=== PATIENT | female | born 1945 | race Caucasian/White ===

== ENCOUNTER 2016-11-12 10:07 | Emergency (ER) | payer MEDICARE ==
[2016-11-12 10:35] VITALS: BP 157/74
--- NOTE | 2016-11-12 11:14 | Emergency Department Report ---
HPI - General Chief Complaint: Upper Respiratory Infection Time Seen by Provider: 11/12/16 11:05 - HPI HPI: Patient here reports that she has cough and sore throat for over 5 months. She says she saw her doctor is Dr. Daugherty 1 month ago and was put on cough medicine but it's not helping. Patient has a history of diabetes and high blood pressure. She denies any chest pain or shortness of breath. Denies any nausea or vomiting. Denies any fever or chills. Patient says she had chest x-ray one month ago and her doctor told her that it was normal. She says she is having nasal congestion and worsening cough at night. Reports sore throat is 5 out of 10 and feels achy with coughing. Patient also on lisinopril which she says she started about 5 months ago. ED Past Medical Hx - Past Medical History Previous Medical History?: Yes Hx Hypertension: Yes Hx Diabetes: Yes - Surgical History Past Surgical History?: No - Family History Family history: hypertension - Social History Smoking Status: Never Smoker Substance Use Type: Prescribed - Medications Home Medications: Home Medications Medication Instructions Recorded Confirmed Last Taken Type Azithromycin [Zithromax Z-MARLEEN] 250 mg PO DAILY #6 tab 11/12/16 Unknown Rx Cetirizine HCl [ZyrTEC] 10 mg PO QDAY #10 capsule 11/12/16 Unknown Rx Esomeprazole Magnesium [NexIUM] 1 tab PO DAILY 11/12/16 11/12/16 11/12/16 History Fluticasone [Flonase] 1 spray NS QDAY #1 bottle 11/12/16 Unknown Rx Hydrochlorothiazide [HCTZ] 25 mg PO QDAY #30 tablet 11/12/16 Unknown Rx Promethazine /Codeine 11/12/16 11/12/16 11/04/16 History [Phenergan/Codeine 6.25-10 mg/5 ml] Sitagliptin Phosphate [Januvia] 100 mg PO DAILY 11/12/16 11/12/16 11/12/16 History guaiFENesin/CODEINE [Robitussin AC] 5 ml PO QHS PRN #70 udc 11/12/16 Unknown Rx metFORMIN [Glucophage] 500 mg PO BID 11/12/16 11/12/16 11/11/16 History ED Review of Systems ROS: Stated complaint: COUGH/ SORE THROAT Other details as noted in HPI Comment: All other systems reviewed and negative Constitutional: denies: chills, fever Eyes: denies: eye pain ENT: throat pain, congestion. denies: ear pain Respiratory: cough. denies: shortness of breath, SOB with exertion, SOB at rest , stridor, wheezing Cardiovascular: denies: chest pain, palpitations, dyspnea on exertion, edema, syncope Gastrointestinal: denies: abdominal pain, nausea, vomiting, diarrhea, constipation Musculoskeletal: denies: back pain, arthralgia Skin: denies: rash Neurological: denies: headache, weakness, numbness, paresthesias, confusion, abnormal gait, vertigo Physical Exam - Physical Exam Vital Signs: Vital Signs 11/12/16 10:31 Temperature 98.6 F Pulse Rate 65 Respiratory 18 Rate Blood Pressure 157/74 O2 Sat by Pulse 96 Oximetry General: This is a 71-year-old female well-nourished well-developed in no acute distress. Physical Exam: Head: Normocephalic atraumatic Mouth: Moist, no pharyngeal exudate or erythema. Uvula is midline and oral airway is patent. No facial swelling. No peritonsillar abscesses. Nose: Congested with erythema to mucosa. Clear Drainage. Maxillary and frontal sinuses nontender to palpate Neck: Supple, no C-spine tenderness, no tracheal deviation. Nontender to palpate. no adenopathy Ears: Bilateral TMs congested without erythema. Bilateral EAC without any redness swelling or drainage. Abdomen: Soft, nontender to palpate in all quadrants, normal bowel sounds in all quadrant and negative CVA tenderness bilaterally. Eyes: Bilateral pupils equal and reactive to light, bilateral EOM intact. Bilateral sclera and conjunctiva without injection. Normal accommodation. Lungs: Clear to auscultate bilaterally no rhonchi wheezes or rales. Normal work of breathing . Dry cough extremity; No CCE. +2 pulses. No neurovascular compromise Cardiovascular: S1-S2, regular rate rhythm. No murmurs. Skin: clean Dry and intact no rash no lesions Psych: Normal mood and behavior ED Course Vital Signs 11/12/16 10:31 Temperature 98.6 F Pulse Rate 65 Respiratory 18 Rate Blood Pressure 157/74 O2 Sat by Pulse 96 Oximetry - Reevaluation(s) Reevaluation #1: 11/12/16 13:06 Patient stable throughout ED stay. ED Medical Decision Making - Radiology Data Radiology results: report reviewed CT scan of the chest reveals no acute cardiopulmonary findings. - Medical Decision Making ED course: Seen here with cough that she says she has for 5 months and has a primary care doctor that she said that x-ray about a month ago and did not find anything abnormal in her chest. CT scan of the chest reveals no acute cardiopulmonary findings. I discussed with patient and family that her cough is more than likely from lisinopril because it started around the time she started taking lisinopril. She is on lisinopril and HCTZ so I discussed with family that patient should stop lisinopril and I'll prescribe HCTZ because it is a combination at that she's taken and to call her primary care office on Monday to let them know that she was seen in the emergency room and her lisinopril was stopped. Patient and family reported that her blood pressure has been stable without the medication. Certainly that he'll be able to get in to see her primary care on Monday. Patient with upper respiratory infection and will be treated with medication for congestion. He is identified that she has diabetes and other chronic medical problems I will put her on antibiotic. Patient given prescription for Zithromax, Flonase, HCTZ, Reina and guaifenesin with codeine. Patient discharged home with family in voice understanding of discharge instruction and need to follow-up with primary care and pulmonary doctor if she has continued coughing. Critical care attestation.: If time is entered above; I have spent that time in minutes in the direct care of this critically ill patient, excluding procedure time. ED Disposition Clinical Impression: Cough, persistent Upper respiratory tract infection Qualifiers: URI type: unspecified URI Qualified Code(s): J06.9 - Acute upper respiratory infection, unspecified Disposition: DISCHARGED TO HOME OR SELFCARE Is pt being admited?: No Does the pt Need Aspirin: No Condition: Stable Instructions: Upper Respiratory Infection (ED), Chronic Cough (ED) Additional Instructions: Follow up with her primary care physician in 2-3 days Cough is now resolved, he will need to follow-up with pulmonary doctor Take cough medicine as prescribed. Take antibiotic as prescribed Please stop taking lisinopril with HCTZ and start taking HCTZ. Prescriptions: guaiFENesin/CODEINE [Robitussin AC] 5 ml PO QHS PRN #70 udc PRN Reason: Cough Azithromycin [Zithromax Z-MARLEEN] 250 mg PO DAILY #6 tab Cetirizine HCl [ZyrTEC] 10 mg PO QDAY #10 capsule Fluticasone [Flonase] 1 spray NS QDAY #1 bottle Hydrochlorothiazide [HCTZ] 25 mg PO QDAY #30 tablet Referrals: PRIMARY CARE, [Primary Care Provider] - 2-3 Days Forms: Accompanied Note
--- NOTE | 2016-11-12 11:57 | Cat Scan Report ---
CT CHEST WITHOUT CONTRAST: HISTORY: Cough. TECHNIQUE: Helical CT with sagittal and coronal reformatted images. FINDINGS: Heart size is normal. There is no evidence of adenopathy within the mediastinum. Pulmonary araceli are free of any mass and the lungs are clear of infiltrates. The pleura is unremarkable. No masses involve the chest wall. No abnormalities are noted within the upper abdomen. The adrenal glands are normal. IMPRESSION: Unremarkable noncontrast CT chest.
== END 2016-11-12 13:25 | disposition home or self-care (01) ==
LOC: ED 10:07
DX: J06.9 Acute upper respiratory infection, unspecified (principal); I10 Essential (primary) hypertension; E11.9 Type 2 diabetes mellitus without complications
CPT/HCPCS: 71250

== ENCOUNTER 2017-01-05 00:58 | Emergency (ER) | payer MEDICARE ==
[2017-01-05] MEDS ORDERED: NACL 0.9% 1000 ML 1,000 ML IV ONE (01:16)
[2017-01-05 02:09] LABS: Basophils % (Auto) 0.4 % (0.0-1.8); Eosinophils % (Auto) 0.2 % (0.0-4.3); Hematocrit 36.7 % (30.3-42.9); Hemoglobin 12.2 gm/dl (10.1-14.3); Mean Corpuscular HGB Conc 33 % (30-34); Mean Corpuscular Hemoglobin 32 pg (28-32); Mean Corpuscular Volume 95 fl (79-97); Platelet Count 209 K/mm3 (140-440); Red Blood Count 3.86 M/mm3 (3.65-5.03); Red Cell Distribution Width 14.3 % (13.2-15.2); White Blood Count 6.7 K/mm3 (4.5-11.0)
[2017-01-05 02:16] LABS: INR 1.02 (0.87-1.13)
[2017-01-05 02:17] LABS: Partial Thromboplastin Time 28.9 Sec. (24.2-36.6)
[2017-01-05 02:19] LABS: Alanine Aminotransferase 37 units/L (7-56); Albumin 3.9 g/dL (3.9-5); Albumin/Globulin Ratio 1.1 %; Alkaline Phosphatase 88 units/L (35-129); Anion Gap 19 mmol/L; Blood Urea Nitrogen 28 mg/dL (7-17); Calcium 8.7 mg/dL (8.4-10.2); Carbon Dioxide 20 mmol/L (22-30); Chloride 103.2 mmol/L (98-107); Glucose 222 mg/dL (65-100); Lipase 38 units/L (13-60); Potassium 4.3 mmol/L (3.6-5.0); Sodium 138 mmol/L (137-145); Total Protein 7.4 g/dL (6.3-8.2)
[2017-01-05 04:06] LABS: Bilirubin,Urine NEG (Negative); Blood,Urine NEG (Negative); Ketones,Urine NEG (Negative); Leukocyte Esterase,Urine NEG (Negative); Mucus,Urine FEW /HPF; Nitrite,Urine NEG (Negative); Protein,Urine <15 mg/dL mg/dL (Negative); RBC,Urine < 1.0 /HPF (0.0-6.0); Urobilinogen,Urine < 2.0 mg/dL (<2.0)
--- NOTE | 2017-01-05 08:19 | Cat Scan Report ---
CT OF THE ABDOMEN AND PELVIS WITHOUT CONTRAST HISTORY: Abdominal pain, GI bleeding. TECHNIQUE: Helical CT without contrast. Sagittal and coronal reformatted images. FINDINGS: Within the limits of a noncontrast exam, the abdominal and pelvic viscera are within normal limits. The liver, biliary system, pancreas, spleen, kidneys, adrenal glands and bladder are unremarkable. The bowel loops are normal caliber and wall thickness given no oral contrast was administered. There is no obvious active GI bleeding on this limited exam. Normal appendix. The aorta is normal caliber. No ascites, bulky adenopathy or inflammatory changes. The uterus and adnexa are unremarkable. The lung bases are clear. Normal heart size. No suspicious bony lesion. IMPRESSION: Unremarkable noncontrast CT of the abdomen and pelvis.
--- NOTE | 2017-01-05 12:21 | Emergency Department Report ---
ED GI Bleed HPI - General Chief complaint: GI Bleed Stated complaint: BLOOD IN STOOL Time Seen by Provider: 01/05/17 11:28 Source: patient Mode of arrival: Ambulatory Limitations: Language Barrier - History of Present Illness Initial comments: Denies history of taking anticoagulation prescription PAtient's son available during the discussion MD complaint: blood streaked stool -: Gradual, hour(s) Radiation: none Severity scale (0 -10): 0 Consistency: intermittent Improves with: none Worsens with: bowel movement Associated Symptoms: denies: abdominal pain, nausea, vomiting, epistaxis, fever/ chills, headaches, loss of appetite, malaise, easy bruising, rash, other bleeding, shortness of breath, syncope, weakness - Related Data Home Medications Medication Instructions Recorded Confirmed Last Taken Esomeprazole Magnesium [NexIUM] 1 tab PO DAILY 11/12/16 11/12/16 11/12/16 Promethazine /Codeine 11/12/16 11/12/16 11/04/16 [Phenergan/Codeine 6.25-10 mg/5 ml] Sitagliptin Phosphate [Januvia] 100 mg PO DAILY 11/12/16 11/12/16 11/12/16 metFORMIN [Glucophage] 500 mg PO BID 11/12/16 11/12/16 11/11/16 Previous Rx's Medication Instructions Recorded Last Taken Type Azithromycin [Zithromax Z-MARLEEN] 250 mg PO DAILY #6 tab 11/12/16 Unknown Rx Cetirizine HCl [ZyrTEC] 10 mg PO QDAY #10 capsule 11/12/16 Unknown Rx Fluticasone [Flonase] 1 spray NS QDAY #1 bottle 11/12/16 Unknown Rx Hydrochlorothiazide [HCTZ] 25 mg PO QDAY #30 tablet 11/12/16 Unknown Rx guaiFENesin/CODEINE [Robitussin AC] 5 ml PO QHS PRN #70 udc 11/12/16 Unknown Rx Allergies Allergy/AdvReac Type Severity Reaction Status Date / Time Penicillins Allergy Unknown Verified 11/12/16 10:35 ED Review of Systems ROS: Stated complaint: BLOOD IN STOOL Other details as noted in HPI Other: GENERAL: No weight change, fatigue, weakness, fever, chills, or night sweats SKIN: No changes in skin or hair, no itching, no rashes, no jaundice HEAD: No trauma, headache, or visual changes EYES: No blurriness, tearing, itching, acute visual loss, conjunctival discoloration, or scleral icterus EARS: No hearing loss, tinnitus, vertigo, or earache NOSE: No rhinorrhea, stuffiness, sneezing, itching, or epistaxis MOUTH: No bleeding gums, hoarseness, sore throat, or swelling CARDIAC: No new murmur, chest pain, palpitations, dyspnea on exertion, orthopnea , PND, or edema RESPIRATORY: No shortness of breath, wheeze, cough, sputum production, hemoptysis, pneumonia, asthma, bronchitis, or emphysema GI: hematochezia URINARY: No frequency, urgency, polyuria, dysuria, hematuria, or incontinence MUSCULOSKELETAL: No muscle weakness, joint stiffness, decrease in range of motion, redness, swelling, tenderness NEUROLOGIC: No loss of sensation, numbness, tingling, tremors, weakness, paralysis, seizures HEMATOLOGIC: No anemia, easy bruising, bleeding, petechiae, or purpura ENDOCRINE: No hot or cold intolerance, sweating, polyuria, polydipsia or, polyphagia no thyroid problems PSYCHIATRIC: No change in mood, no anxiety, no depression ED Past Medical Hx - Past Medical History Previous Medical History?: Yes Hx Hypertension: Yes Hx Diabetes: Yes - Social History Smoking Status: Never Smoker Substance Use Type: None - Medications Home Medications: Home Medications Medication Instructions Recorded Confirmed Last Taken Type Azithromycin [Zithromax Z-MARLEEN] 250 mg PO DAILY #6 tab 11/12/16 Unknown Rx Cetirizine HCl [ZyrTEC] 10 mg PO QDAY #10 capsule 11/12/16 Unknown Rx Esomeprazole Magnesium [NexIUM] 1 tab PO DAILY 11/12/16 11/12/16 11/12/16 History Fluticasone [Flonase] 1 spray NS QDAY #1 bottle 11/12/16 Unknown Rx Hydrochlorothiazide [HCTZ] 25 mg PO QDAY #30 tablet 11/12/16 Unknown Rx Promethazine /Codeine 11/12/16 11/12/16 11/04/16 History [Phenergan/Codeine 6.25-10 mg/5 ml] Sitagliptin Phosphate [Januvia] 100 mg PO DAILY 11/12/16 11/12/16 11/12/16 History guaiFENesin/CODEINE [Robitussin AC] 5 ml PO QHS PRN #70 udc 11/12/16 Unknown Rx metFORMIN [Glucophage] 500 mg PO BID 11/12/16 11/12/16 11/11/16 History ED Physical Exam - General Limitations: Language Barrier - Other Other exam information: GENERAL: Patient in no acute distress HEAD: Normocephalic, atraumatic EYES: PERRLA, EOM intact, no scleral icterus, no conjunctival hemorrhage, visual farnsworth and acuity wnl, NOSE: No tenderness, discharge, sinus tenderness MOUTH: No erythema, bleeding, exudate HEART: Regular rate and rhythm, no murmur, S1-S2 are auscultated, pulses are symmetric LUNGS: No wheezing, rales, rhonchi, bilateral breath sounds ABDOMEN: Normal bowel sounds, no tenderness, no rebound, no guarding, no masses , no CVA tenderness MUSCULOSKELETAL: Normal joint range of motion, no redness, no swelling, no tenderness NEUROLOGIC: Alert, Cranial nerves intact, normal sensation, normal strength, no cerebellar deficit PSYCHIATRIC: No homicidal or suicidal ideation, no anxiety, no depression, no hallucinations SKIN: Skin is warm and dry, no wounds, no rashes ED Course Vital Signs 01/05/17 01/05/17 01/05/17 01:03 01:09 03:55 Temperature 97.5 F L 97.6 F 98.7 F Pulse Rate 84 84 88 Respiratory 18 18 18 Rate Blood Pressure 173/81 138/88 Blood Pressure 173/81 [Right] O2 Sat by Pulse 98 97 97 Oximetry 01/05/17 01/05/17 01/05/17 06:09 06:11 06:21 Temperature 98.3 F Pulse Rate 60 64 Respiratory 19 24 Rate Blood Pressure 144/73 140/73 Blood Pressure 144/73 [Right] O2 Sat by Pulse 97 98 95 Oximetry 01/05/17 01/05/17 01/05/17 06:30 06:41 07:25 Temperature Pulse Rate 66 70 79 Respiratory 21 15 13 Rate Blood Pressure 133/71 133/71 138/71 Blood Pressure [Right] O2 Sat by Pulse 95 98 97 Oximetry 01/05/17 01/05/17 01/05/17 07:30 07:40 09:02 Temperature 98 F Pulse Rate 61 72 Respiratory 23 16 Rate Blood Pressure 137/66 138/71 Blood Pressure 138/71 [Right] O2 Sat by Pulse 97 96 98 Oximetry 01/05/17 01/05/17 01/05/17 09:11 09:21 09:30 Temperature Pulse Rate Respiratory Rate Blood Pressure 137/72 135/72 138/67 Blood Pressure [Right] O2 Sat by Pulse 97 99 98 Oximetry 01/05/17 01/05/17 01/05/17 09:41 09:51 10:01 Temperature Pulse Rate Respiratory Rate Blood Pressure 137/66 143/75 143/75 Blood Pressure [Right] O2 Sat by Pulse 95 95 86 Oximetry 01/05/17 01/05/17 01/05/17 10:11 10:21 10:30 Temperature Pulse Rate 94 H 59 L Respiratory 22 21 Rate Blood Pressure 143/75 151/69 133/62 Blood Pressure [Right] O2 Sat by Pulse 97 97 97 Oximetry 01/05/17 01/05/17 01/05/17 10:41 10:51 11:00 Temperature Pulse Rate 63 57 L 81 Respiratory 16 17 25 H Rate Blood Pressure 133/62 129/68 136/71 Blood Pressure [Right] O2 Sat by Pulse 96 96 96 Oximetry 01/05/17 01/05/17 01/05/17 11:11 11:21 11:30 Temperature Pulse Rate 61 62 66 Respiratory 20 21 21 Rate Blood Pressure 136/71 132/68 138/66 Blood Pressure [Right] O2 Sat by Pulse 97 96 97 Oximetry 01/05/17 01/05/17 12:27 12:48 Temperature Pulse Rate 60 Respiratory 18 Rate Blood Pressure 125/69 Blood Pressure 125/69 [Right] O2 Sat by Pulse 91 98 Oximetry ED Medical Decision Making - Lab Data Result diagrams: 01/05/17 01:26 01/05/17 01:26 - Radiology Data Radiology results: report reviewed - Medical Decision Making Patient comfortable. Updated with results. Plan discharge with outpatient follow-up. Patient agrees with plan and will return if symptoms worsen. Critical care attestation.: If time is entered above; I have spent that time in minutes in the direct care of this critically ill patient, excluding procedure time. ED Disposition Clinical Impression: Rectal bleeding Disposition: DC-01 TO HOME OR SELFCARE Is pt being admited?: No Condition: Stable Instructions: Rectal Bleeding (ED) Referrals: LUKE NASH PA [Primary Care Provider] - 2-3 Days [facility] [Provider Group] - 2-3 Days Forms: Accompanied Note Time of Disposition: 12:21
[2017-01-05 12:49] VITALS: BP 125/69
== END 2017-01-05 12:48 | disposition home or self-care (01) ==
LOC: ED 00:58
DX: K62.5 Hemorrhage of anus and rectum (principal); I10 Essential (primary) hypertension; E11.9 Type 2 diabetes mellitus without complications; Z88.0 Allergy status to penicillin
CPT/HCPCS: 36415; 74176; 80053; 81001; 83690; 85025; 85610; 85730; 86850; 86900; 86901; 93005; 93010

== ENCOUNTER 2021-08-06 23:59 | Emergency (ER) | payer MEDICARE ==
[2021-08-07] MEDS ORDERED: SODIUM CHLORIDE 0.9% 1000 ML IV SOLN IV ONE (01:16)
--- NOTE | 2021-08-07 01:30 | Emergency Department Report ---
HPI - General Chief Complaint: Weakness Time Seen by Provider: 08/07/21 01:09 - HPI HPI: 76-year-old female presents to the emergency department via EMS from home after she became very weak and it appeared like she was going to pass out. This was witnessed by her son, who called EMS. She has 2 sons, both named Johnson. The son that lives in [place] is the one that knows her medical history and his phone number is [phone]. This patient has a history of stage IV liver cancer with lung metastasis. All of her care is through [facility]. The patient recently had an issue with obstructive jaundice towards the end of 2020. Her son says that the patient had a biliary stent taken out on Monday, 2 days ago. The patient was due for chemotherapy treatment today but did not go secondary to her feeling ill. The son said that she appeared pale, shaky, and she was complaining of chills. She presents with a fever of 103 F, tachycardia, and some borderline hypotension and a code sepsis was initiated. ED Past Medical Hx - Past Medical History Hx Hypertension: Yes Hx Diabetes: Yes Additional medical history: CANCER, CHEMO, - Surgical History Past Surgical History?: Yes - Social History Smoking Status: Never Smoker Substance Use Type: None - Medications Home Medications: Home Medications Medication Instructions Recorded Confirmed Last Taken Type Azithromycin [Zithromax Z-MARLEEN] 250 mg PO DAILY #6 tab 11/12/16 Unknown Rx Cetirizine HCl [ZyrTEC] 10 mg PO QDAY #10 capsule 11/12/16 Unknown Rx Esomeprazole Magnesium [NexIUM] 1 tab PO DAILY 11/12/16 11/12/16 11/12/16 H istory Fluticasone [Flonase] 1 spray NS QDAY #1 bottle 11/12/16 Unknown Rx Promethazine /Codeine 11/12/16 11/12/16 11/04/16 History [Phenergan/Codeine 6.25-10 mg/5 ml] Sitagliptin Phosphate [Januvia] 100 mg PO DAILY 11/12/16 11/12/16 11/12/16 History guaiFENesin/CODEINE [Robitussin AC] 5 ml PO QHS PRN #70 udc 11/12/16 Unknown Rx hydroCHLOROthiazide [HCTZ] 25 mg PO QDAY #30 tablet 11/12/16 Unknown Rx metFORMIN [Glucophage] 500 mg PO BID 11/12/16 11/12/16 11/11/16 History ED Review of Systems ROS: Stated complaint: WEAKNESS/FALL Other details as noted in HPI Comment: All other systems reviewed and negative Constitutional: chills, fever, weakness Eyes: denies: eye pain, vision change ENT: denies: ear pain, throat pain Respiratory: denies: cough, shortness of breath Cardiovascular: denies: chest pain, palpitations Gastrointestinal: denies: vomiting, diarrhea Musculoskeletal: back pain, myalgia Skin: denies: rash, lesions Neurological: denies: numbness, paresthesias Physical Exam - Physical Exam Vital Signs: Vital Signs 08/07/21 01:04 Temperature 103.4 F H Pulse Rate 132 H Respiratory 20 Rate Blood Pressure 90/56 [Left] O2 Sat by Pulse 92 Oximetry Physical Exam: GENERAL: The patient is ill-appearing. HENT: Normocephalic. Atraumatic. Patient has moist mucous membranes. EYES: Extraocular motions are intact. Pupils equal reactive to light bilat erally. NECK: Supple. Trachea is midline. CHEST/LUNGS: Clear to auscultation. Mild tachypnea. HEART/CARDIOVASCULAR: Regular. There is moderate no tachycardia. There is no murmur. ABDOMEN: Abdomen is soft, nontender. Patient has normal bowel sounds. There is no abdominal distention. SKIN: Skin is warm and dry. Patient is jaundiced. NEURO: The patient is awake and cooperative. Normal speech. MUSCULOSKELETAL: There is no tenderness or deformity. ED Course Vital Signs 08/07/21 01:04 Temperature 103.4 F H Pulse Rate 132 H Respiratory 20 Rate Blood Pressure 90/56 [Left] O2 Sat by Pulse 92 Oximetry - Consultations Consultation #1: 08/07/21 07:07 I spoke to the superintendent electric power on-call, Dr. Salazar, and she will consult on the patient. I spoke to the environmental communications specialist on-call, Dr. Magdaleno. She agrees with the plan for resuscitation and broad-spectrum antibiotics. Otherwise no new orders and GI will consult on the patient. - Central Line Placement Right Femoral Consent Obtained: verbal consent (From son Johnson), emergent situation Time Out Performed: Yes Patient Placed on Monitor/Pulse Ox: Yes MD Prep: mask, gown, gloves Central Line Prep: Chlorhexidine scrub Local Anesthesia Used: Lidocaine 1% Amount of Anesthesia Used (mls): 3 Ultrasound Used for Placement: Yes Central Line Lumen Inserted: triple Reason for Insertion: Volume Resuscitation Bloods Obtained for Lab: No Central Line Position: good blood return, all ports aspirated, flus, sutured in place with nyl Dressing Applied: Tegaderm Post Procedure X-Ray: tip of catheter in good p Patient Tolerated Procedure: well Complications: none ED Medical Decision Making - Lab Data Result diagrams: 08/07/21 01:08/07/21:33 Lab Results 08/07/21 08/07/21 08/07/21 Range/Units : 01:33 01:33 WBC 16.0 H (4.5-11.0) K/mm3 RBC 3.30 L (3.65-5.03) M/mm3 Hgb 10.9 (10.1-14.3) gm/dl Hct 33.5 (30.3-42.9) % MCV 102 H (79-97) fl MCH 33 H (28-32) pg MCHC 32 (30-34) % RDW 14.5 (13.2-15.2) % Plt Count 183 (140-440) K/mm3 Add Manual Diff Complete Total Counted 100 Seg Neutrophils % [employer] Seg Neuts % (Manual) 74.0 H (40.0-70.0) % Band Neutrophils % 17.0 % Lymphocytes % (Manual) 5.0 L (13.4-35.0) % Reactive Lymphs % (Man) 0 % Monocytes % (Manual) 2.0 (0.0-7.3) % Eosinophils % (Manual) 0 (0.0-4.3) % Basophils % (Manual) 0 (0.0-1.8) % Metamyelocytes % 2.0 % Myelocytes % 0 % Promyelocytes % 0 % Blast Cells % 0 % Nucleated RBC % Not Reportable Seg Neutrophils # Man 11.8 H (1.8-7.7) K/mm3 Band Neutrophils # 2.7 K/mm3 Lymphocytes # (Manual) 0.8 L (1.2-5.4) K/mm3 Abs React Lymphs (Man) 0.0 K/mm3 Monocytes # (Manual) 0.3 (0.0-0.8) K/mm3 Eosinophils # (Manual) 0.0 (0.0-0.4) K/mm3 Basophils # (Manual) 0.0 (0.0-0.1) K/mm3 Metamyelocytes # 0.3 K/mm3 Myelocytes # 0.0 K/mm3 Promyelocytes # 0.0 K/mm3 Blast Cells # 0.0 K/mm3 WBC Morphology Not Reportable Hypersegmented Neuts Not Reportable Hyposegmented Neuts Not Reportable Hypogranular Neuts Not Reportable Smudge Cells Not Reportable Toxic Granulation Not Reportable Toxic Vacuolation Not Reportable Dohle Bodies Not Reportable Pelger-Huet Anomaly Not Reportable Yogi Rods Not Reportable Platelet Estimate Consistent w auto Clumped Platelets Not Reportable Plt Clumps, EDTA Not Reportable Large Platelets Not Reportable Giant Platelets Not Reportable Platelet Satelliting Not Reportable Plt Morphology Comment Not Reportable RBC Morphology Not Reportable Dimorphic RBCs Not Reportable Polychromasia Not Reportable Hypochromasia 1+ Poikilocytosis 1+ Anisocytosis 1+ Microcytosis Not Reportable Macrocytosis 1+ Spherocytes Rare Pappenheimer Bodies Not Reportable Sickle Cells Not Reportable Target Cells Not Reportable Tear Drop Cells Not Reportable Ovalocytes Few Stomatocytes Few Helmet Cells Not Reportable Franks-Lonoke Bodies Not Reportable Stafford Rings Not Reportable Luz Cells Not Reportable Bite Cells Not Reportable Crenated Cell Not Reportable Elliptocytes Not Reportable Acanthocytes (Spur) Not Reportable Rouleaux Not Reportable Hemoglobin C Crystals Not Reportable Schistocytes Not Reportable Malaria parasites Not Reportable Navid Bodies Not Reportable Hem Pathologist Commnt No D-Dimer (0-234) ng/mlDDU Sodium 133 L (137-145) mmol/L Potassium 4.0 (3.6-5.0) mmol/L Chloride 98.6 (98-107) mmol/L Carbon Dioxide 18 L (22-30) mmol/L Anion Gap 20 mmol/L BUN 27 H (7-17) mg/dL Creatinine 0.9 (0.6-1.2) mg/dL Estimated GFR > 60 ml/min BUN/Creatinine Ratio 30 % Glucose 163 H (65-100) mg/dL Lactic Acid 5.70 H* (0.7-2.0) mmol/L Calcium 7.9 L (8.4-10.2) mg/dL Ferritin (10.0-200.0) ng/mL Total Bilirubin 6.80 H (0.1-1.2) mg/dL AST 174 H (5-40) units/L ALT 89 H (7-56) units/L Alkaline Phosphatase 349 H (35-129) units/L Ammonia (25-60) umol/L Lactate Dehydrogenase (91-180) units/L Troponin T < 0.010 (0.00-0.029) ng/mL C-Reactive Protein (0.00-1.30) mg/dL Total Protein 6.0 L (6.3-8.2) g/dL Albumin 2.6 L (3.9-5) g/dL Albumin/Globulin Ratio 0.8 % TSH (0.270-4.200) mlU/mL 08/07/21 08/07/21 08/07/21 Range/Units 01:33 01:33 01:53 WBC (4.5-11.0) K/mm3 RBC (3.65-5.03) M/mm3 Hgb (10.1-14.3) gm/dl Hct (30.3-42.9) % MCV (79-97) fl MCH (28-32) pg MCHC (30-34) % RDW (13.2-15.2) % Plt Count (140-440) K/mm3 Add Manual Diff Total Counted Seg Neutrophils % Seg Neuts % (Manual) (40.0-70.0) % Band Neutrophils % % Lymphocytes % (Manual) (13.4-35.0) % Reactive Lymphs % (Man) % Monocytes % (Manual) (0.0-7.3) % Eosinophils % (Manual) (0.0-4.3) % Basophils % (Manual) (0.0-1.8) % Metamyelocytes % % Myelocytes % % Promyelocytes % % Blast Cells % % Nucleated RBC % Seg Neutrophils # Man (1.8-7.7) K/mm3 Band Neutrophils # K/mm3 Lymphocytes # (Manual) (1.2-5.4) K/mm3 Abs React Lymphs (Man) K/mm3 Monocytes # (Manual) (0.0-0.8) K/mm3 Eosinophils # (Manual) (0.0-0.4) K/mm3 Basophils # (Manual) (0.0-0.1) K/mm3 Metamyelocytes # K/mm3 Myelocytes # K/mm3 Promyelocytes # K/mm3 Blast Cells # K/mm3 WBC Morphology Hypersegmented Neuts Hyposegmented Neuts Hypogranular Neuts Smudge Cells Toxic Granulation Toxic Vacuolation Dohle Bodies Pelger-Huet Anomaly Yogi Rods Platelet Estimate Clumped Platelets Plt Clumps, EDTA Large Platelets Giant Platelets Platelet Satelliting Plt Morphology Comment RBC Morphology Dimorphic RBCs Polychromasia Hypochromasia Poikilocytosis Anisocytosis Microcytosis Macrocytosis Spherocytes Pappenheimer Bodies Sickle Cells Target Cells Tear Drop Cells Ovalocytes Stomatocytes Helmet Cells Franks-Lonoke Bodies Stafford Rings Luz Cells Bite Cells Crenated Cell Elliptocytes Acanthocytes (Spur) Rouleaux Hemoglobin C Crystals Schistocytes Malaria parasites Navid Bodies Hem Pathologist Commnt D-Dimer 4285.00 H (0-234) ng/mlDDU Sodium (137-145) mmol/L Potassium (3.6-5.0) mmol/L Chloride (98-107) mmol/L Carbon Dioxide (22-30) mmol/L Anion Gap mmol/L BUN (7-17) mg/dL Creatinine (0.6-1.2) mg/dL Estimated GFR ml/min BUN/Creatinine Ratio % Glucose (65-100) mg/dL Lactic Acid (0.7-2.0) mmol/L Calcium (8.4-10.2) mg/dL Ferritin (10.0-200.0) ng/mL Total Bilirubin (0.1-1.2) mg/dL AST (5-40) units/L ALT (7-56) units/L Alkaline Phosphatase (35-129) units/L Ammonia 19.0 L (25-60) umol/L Lactate Dehydrogenase (91-180) units/L Troponin T (0.00-0.029) ng/mL C-Reactive Protein (0.00-1.30) mg/dL Total Protein (6.3-8.2) g/dL Albumin (3.9-5) g/dL Albumin/Globulin Ratio % TSH 1.150 (0.270-4.200) mlU/mL 08/07/21 08/07/21 08/07/21 Range/Units 01:53 01:53 05:44 WBC (4.5-11.0) K/mm3 RBC (3.65-5.03) M/mm3 Hgb (10.1-14.3) gm/dl Hct (30.3-42.9) % MCV (79-97) fl MCH (28-32) pg MCHC (30-34) % RDW (13.2-15.2) % Plt Count (140-440) K/mm3 Add Manual Diff Total Counted Seg Neutrophils % Seg Neuts % (Manual) (40.0-70.0) % Band Neutrophils % % Lymphocytes % (Manual) (13.4-35.0) % Reactive Lymphs % (Man) % Monocytes % (Manual) (0.0-7.3) % Eosinophils % (Manual) (0.0-4.3) % Basophils % (Manual) (0.0-1.8) % Metamyelocytes % % Myelocytes % % Promyelocytes % % Blast Cells % % Nucleated RBC % Seg Neutrophils # Man (1.8-7.7) K/mm3 Band Neutrophils # K/mm3 Lymphocytes # (Manual) (1.2-5.4) K/mm3 Abs React Lymphs (Man) K/mm3 Monocytes # (Manual) (0.0-0.8) K/mm3 Eosinophils # (Manual) (0.0-0.4) K/mm3 Basophils # (Manual) (0.0-0.1) K/mm3 Metamyelocytes # K/mm3 Myelocytes # K/mm3 Promyelocytes # K/mm3 Blast Cells # K/mm3 WBC Morphology Hypersegmented Neuts Hyposegmented Neuts Hypogranular Neuts Smudge Cells Toxic Granulation Toxic Vacuolation Dohle Bodies Pelger-Huet Anomaly Yogi Rods Platelet Estimate Clumped Platelets Plt Clumps, EDTA Large Platelets Giant Platelets Platelet Satelliting Plt Morphology Comment RBC Morphology Dimorphic RBCs Polychromasia Hypochromasia Poikilocytosis Anisocytosis Microcytosis Macrocytosis Spherocytes Pappenheimer Bodies Sickle Cells Target Cells Tear Drop Cells Ovalocytes Stomatocytes Helmet Cells Franks-Lonoke Bodies Stafford Rings Luz Cells Bite Cells Crenated Cell Elliptocytes Acanthocytes (Spur) Rouleaux Hemoglobin C Crystals Schistocytes Malaria parasites Navid Bodies Hem Pathologist Commnt D-Dimer (0-234) ng/mlDDU Sodium (137-145) mmol/L Potassium (3.6-5.0) mmol/L Chloride (98-107) mmol/L Carbon Dioxide (22-30) mmol/L Anion Gap mmol/L BUN (7-17) mg/dL Creatinine (0.6-1.2) mg/dL Estimated GFR ml/min BUN/Creatinine Ratio % Glucose (65-100) mg/dL Lactic Acid 4.70 H* (0.7-2.0) mmol/L Calcium (8.4-10.2) mg/dL Ferritin 1231.0 H (10.0-200.0) ng/mL Total Bilirubin (0.1-1.2) mg/dL AST (5-40) units/L ALT (7-56) units/L Alkaline Phosphatase (35-129) units/L Ammonia (25-60) umol/L Lactate Dehydrogenase 477 H (91-180) units/L Troponin T (0.00-0.029) ng/mL C-Reactive Protein 31.30 H (0.00-1.30) mg/dL Total Protein (6.3-8.2) g/dL Albumin (3.9-5) g/dL Albumin/Globulin Ratio % TSH (0.270-4.200) mlU/mL 08/07/21 Range/Units Unknown WBC (4.5-11.0) K/mm3 RBC (3.65-5.03) M/mm3 Hgb (10.1-14.3) gm/dl Hct (30.3-42.9) % MCV (79-97) fl MCH (28-32) pg MCHC (30-34) % RDW (13.2-15.2) % Plt Count (140-440) K/mm3 Add Manual Diff Total Counted Seg Neutrophils % Seg Neuts % (Manual) (40.0-70.0) % Band Neutrophils % % Lymphocytes % (Manual) (13.4-35.0) % Reactive Lymphs % (Man) % Monocytes % (Manual) (0.0-7.3) % Eosinophils % (Manual) (0.0-4.3) % Basophils % (Manual) (0.0-1.8) % Metamyelocytes % % Myelocytes % % Promyelocytes % % Blast Cells % % Nucleated RBC % Seg Neutrophils # Man (1.8-7.7) K/mm3 Band Neutrophils # K/mm3 Lymphocytes # (Manual) (1.2-5.4) K/mm3 Abs React Lymphs (Man) K/mm3 Monocytes # (Manual) (0.0-0.8) K/mm3 Eosinophils # (Manual) (0.0-0.4) K/mm3 Basophils # (Manual) (0.0-0.1) K/mm3 Metamyelocytes # K/mm3 Myelocytes # K/mm3 Promyelocytes # K/mm3 Blast Cells # K/mm3 WBC Morphology Hypersegmented Neuts Hyposegmented Neuts Hypogranular Neuts Smudge Cells Toxic Granulation Toxic Vacuolation Dohle Bodies Pelger-Huet Anomaly Yogi Rods Platelet Estimate Clumped Platelets Plt Clumps, EDTA Large Platelets Giant Platelets Platelet Satelliting Plt Morphology Comment RBC Morphology Dimorphic RBCs Polychromasia Hypochromasia Poikilocytosis Anisocytosis Microcytosis Macrocytosis Spherocytes Pappenheimer Bodies Sickle Cells Target Cells Tear Drop Cells Ovalocytes Stomatocytes Helmet Cells Franks-Lonoke Bodies Stafford Rings Ferguson Cells Bite Cells Crenated Cell Elliptocytes Acanthocytes (Spur) Rouleaux Hemoglobin C Crystals Schistocytes Malaria parasites Navid Bodies Hem Pathologist Commnt D-Dimer (0-234) ng/mlDDU Sodium (137-145) mmol/L Potassium (3.6-5.0) mmol/L Chloride (98-107) mmol/L Carbon Dioxide (22-30) mmol/L Anion Gap mmol/L BUN (7-17) mg/dL Creatinine (0.6-1.2) mg/dL Estimated GFR ml/min BUN/Creatinine Ratio % Glucose (65-100) mg/dL Lactic Acid 5.90 H* (0.7-2.0) mmol/L Calcium (8.4-10.2) mg/dL Ferritin (10.0-200.0) ng/mL Total Bilirubin (0.1-1.2) mg/dL AST (5-40) units/L ALT (7-56) units/L Alkaline Phosphatase (35-129) units/L Ammonia (25-60) umol/L Lactate Dehydrogenase (91-180) units/L Troponin T (0.00-0.029) ng/mL C-Reactive Protein (0.00-1.30) mg/dL Total Protein (6.3-8.2) g/dL Albumin (3.9-5) g/dL Albumin/Globulin Ratio % TSH (0.270-4.200) mlU/mL - EKG Data -: EKG Interpreted by [facility] EKG shows normal: sinus rhythm, axis, intervals, QRS complexes, ST-T waves Rate: tachycardia (106 bpm) - EKG Data When compared to previous EKG there are: previous EKG unavailable Interpretation: normal EKG (With mild tachycardia 106 bpm) - Radiology Data Radiology results: report reviewed CHEST 1 VIEW 08/07/2021 1:19 AM INDICATION / CLINICAL INFORMATION: Sepsis. COMPARISON: None available. FINDINGS: SUPPORT DEVICES: None. HEART / MEDIASTINUM: No significant abnormality. LUNGS / PLEURA: Diffuse bilateral rounded and patchy opacities in bilateral lungs No pneumothorax. ADDITIONAL FINDINGS: No significant additional findings. IMPRESSION: 1. Diffuse bilateral pulmonary opacities. Follow-up after treatment. Addendum: In the previous addendum it should read this lesion may represent complex collection with gas and air or possibly abscess. Signer Name: Wil Carbone MD Signed: 08/07/2021 5:49 AM Workstation Name: [id number] Large right hepatic lobe lesion/abnormality measures 9.1 x 5.5 cm. This lesion appears to represent complex tear with gas/air. Surrounding low signal density is also seen extending to the inferior aspect of the right hepatic lobe which could be part of large liver lesion or even surrounding fluid collection/abscess. Small amount of fluid surrounding the gallbladder and gallbladder fossa is also identified. Bowel wall thickening within the ascending colon and portions of the descending colon and into the rectum. Some of this thickening is seen surrounding the anastomosis within the distal colon and recurrent disease or bowel involvement cannot be excluded. Findings could also represent infection/inflammation. Signer Name: Wil Carbone MD Signed: 08/07/2021 4:29 AM Workstation Name: [id number] CT ABDOMEN AND PELVIS WITH CONTRAST HISTORY: Abd pain, Hx of Liver cancer, recent biliary stents. COMPARISON: None. TECHNIQUE: CT images of the abdomen and pelvis were obtained following administration of intravenous contrast. All CT scans at this location are performed using CT dose reduction for ALARA by means of automated exposure control. CONTRAST: 100 ml of intravenous contrast administered. FINDINGS: Lungs/bones: There are multifocal rounded opacities in bilateral lungs Abdomen/pelvis: There is mild intrahepatic biliary ductal dilatation. Large area of density is seen right hepatic lobe could represent large masslike lesion. Mild inflammation is seen surrounding the kidneys and adrenal glands. Postsurgical changes in the distal bowel loops. Free fluid is seen in the pelvis. There is suggested thickening within the ascending colon wall. IMPRESSION: 1. Large area of irregularity in the right hepatic lobe in patient with known liver carcinoma. Multifocal opacities in the lower lungs suggest metastatic disease. 2. Partial thickening of the ascending colon. No bowel obstruction. 3. Free fluid is seen within the pelvis. Mild intrahepatic ductal dilatation CTA CHEST WITH CONTRAST INDICATION / CLINICAL INFORMATION: S.O.B., elevated D- dimer, Hx of Liver Cancer. TECHNIQUE: Axial CT images were obtained through the chest after injection of IV contrast. 3 plane MIP and/or 3D reconstructions were produced. All CT scans at this location are performed using CT dose reduction for ALARA by means of automated exposure control. COMPARISON: None available. FINDINGS: The pulmonary arteries are patent without filling defect or evidence for PTE. Multiple pulmonary nodules/masses are seen in bilateral lungs suggesting diffuse metastatic disease. Large area of gas/irregularity seen in the right hepatic lobe with patient with known history of liver carcinoma. Left hepatic lobe cyst is identified. There is subcarinal and mediastinal adenopathy IMPRESSION: 1. No CT evidence for pulmonary embolism. 2. Diffuse bilateral metastatic disease. Diffuse adenopathy in the mediastinum. - Medical Decision Making This patient presents to the emergency department from home after she was found to be weak, pale, near syncopal and complaining of chills. She presents with a fever of 103 F, tachycardia, borderline hypotension, and a code sepsis was initiated. The patient was given IV fluid at 30 cc/kg but still remains with some hypotension. A central line was placed and the patient will be started on pressors. Labs shows a leukocytosis of 16,000, elevated LFTs, elevated bilirubin, elevated inflammatory markers such as D-dimer, LDH, CRP and ferritin levels. Chest x-ray showed bilateral patchy opacities that are most likely se condary to the lung metastasis. The patient had a CT angiography of the chest that does show bilateral lung metastasis. CT of the abdomen and pelvis with IV contrast shows a complex liver lesion that is most likely her liver carcinoma with the complex collection being air/gas versus an abscess. There is some free fluid in the pelvis of unknown quantity. The patient has been started on broad-spectrum antibiotics. Both the gastroenterology and ICU services have been contacted and consulted. The patient will be admitted to the ICU and was accepted for admission by the hospitalist service. Critical Care Time: Yes Critical care time in (mins) excluding proc time.: 35 Critical care attestation.: If time is entered above; I have spent that time in minutes in the direct care of this critically ill patient, excluding procedure time. Critical care time was spent on this patient in doing her initial evaluation, multiple reevaluations, ordering and interpretation of labs and imaging, IV fluid resuscitation followed by pressors, multiple discussions with the patient's family, discussion with the superintendent electric power, discussion with the environmental communications specialist. This does not include the time spent doing the central line procedure. ED Disposition Clinical Impression: Septic shock, Liver cancer, Lung metastasis, Hypotension, Elevated bilirubin, Transaminitis Disposition: ADMITTED INPATIENT Is pt being admited?: Yes Condition: Serious Time of Disposition: 07:10
--- NOTE | 2021-08-07 01:39 | XRay Report ---
CHEST 1 VIEW 08/07/2021 1:19 AM INDICATION / CLINICAL INFORMATION: Sepsis. COMPARISON: None available. FINDINGS: SUPPORT DEVICES: None. HEART / MEDIASTINUM: No significant abnormality. LUNGS / PLEURA: Diffuse bilateral rounded and patchy opacities in bilateral lungs No pneumothorax. ADDITIONAL FINDINGS: No significant additional findings. IMPRESSION: 1. Diffuse bilateral pulmonary opacities. Follow-up after treatment. Signer Name: Wil Carbone MD Signed: 08/07/2021 1:35 AM Workstation Name: [id number]
[2021-08-07 02:34] LABS: Hematocrit 33.5 % (30.3-42.9); Hemoglobin 10.9 gm/dl (10.1-14.3); Mean Corpuscular HGB Conc 32 % (30-34); Mean Corpuscular Volume 102 fl (79-97); Platelet Count 183 K/mm3 (140-440); Red Cell Distribution Width 14.5 % (13.2-15.2)
[2021-08-07 02:52] LABS: Alanine Aminotransferase 89 units/L (7-56); Albumin 2.6 g/dL (3.9-5); BUN/Creatinine Ratio 30; Blood Urea Nitrogen 27 mg/dL (7-17); Calcium 7.9 mg/dL (8.4-10.2); Hemolysis Index 9
[2021-08-07] MEDS ORDERED: KETOROLAC 30 MG/1 ML INJ IV ONE (02:58)
[2021-08-07 03:38] LABS: C-Reactive Protein 31.3 mg/dL (0.00-1.30)
[2021-08-07] MEDS ORDERED: AZITHROMYCIN/NS 500 MG/250 ML 500 MG/250 ML BAG IV ONE (03:40)
[2021-08-07] MEDS ORDERED: AZITHROMYCIN 500 MG in SODIUM CHLORIDE 0.9% 250ML 250 ML IV NR (04:00)
[2021-08-07 04:10] LABS: Anisocytosis 1+; Band Neutrophils # (Manual) 2.7 K/mm3; Basophils % (Manual) 0 % (0.0-1.8); Eosinophils % (Manual) 0 % (0.0-4.3); Hypochromasia 1+; Macrocytosis 1+; Total Cells Counted 100
[2021-08-07 04:11] LABS: Ovalocytes Few; Platelet Estimate Consistent w Auto; Poikilocytosis 1+; Spherocytes Rare; Stomatocytes Few
--- NOTE | 2021-08-07 05:25 | Cat Scan Report ---
CT ABDOMEN AND PELVIS WITH CONTRAST HISTORY: Abd pain, Hx of Liver cancer, recent biliary stents. COMPARISON: None. TECHNIQUE: CT images of the abdomen and pelvis were obtained following administration of intravenous contrast. All CT scans at this location are performed using CT dose reduction for ALARA by means of automated exposure control. CONTRAST: 100 ml of intravenous contrast administered. FINDINGS: Lungs/bones: There are multifocal rounded opacities in bilateral lungs Abdomen/pelvis: There is mild intrahepatic biliary ductal dilatation. Large area of density is seen right hepatic lobe could represent large masslike lesion. Mild inflammation is seen surrounding the k idneys and adrenal glands. Postsurgical changes in the distal bowel loops. Free fluid is seen in the pelvis. There is suggested thickening within the ascending colon wall. IMPRESSION: 1. Large area of irregularity in the right hepatic lobe in patient with known liver carcinoma. Multif ocal opacities in the lower lungs suggest metastatic disease. 2. Partial thickening of the ascending colon. No bowel obstruction. 3. Free fluid is seen within the pelvis. Mild intrahepatic ductal dilatation 4. Fluid signal is seen within the right hepatic lobe surrounding the larger area of air/gas and live r lesion. Surrounding infection or abscess cannot be excluded. Signer Name: Wil Carbone MD Signed: 08/07/2021 5:20 AM Workstation Name: [id number]
--- NOTE | 2021-08-07 05:29 | Cat Scan Report ---
CTA CHEST WITH CONTRAST INDICATION / CLINICAL INFORMATION: S.O.B., elevated D-dimer, Hx of Liver Cancer. TECHNIQUE: Axial CT images were obtained through the chest after injection of IV contrast. 3 plane NM P and/or 3D reconstructions were produced. All CT scans at this location are performed using CT dose reduction for ALARA by means of automated exposure control. COMPARISON: None available. FINDINGS: The pulmonary arteries are patent without filling defect or evidence for PTE. Multiple pulmonary nodu les/masses are seen in bilateral lungs suggesting diffuse metastatic disease. Large area of gas/irreg ularity seen in the right hepatic lobe with patient with known history of liver carcinoma. Left hepat ic lobe cyst is identified. There is subcarinal and mediastinal adenopathy IMPRESSION: 1. No CT evidence for pulmonary embolism. 2. Diffuse bilateral metastatic disease. Diffuse adenopathy in the mediastinum. Signer Name: Wil Carbone MD Signed: 08/07/2021 5:24 AM Workstation Name: [id number]
[2021-08-07] MEDS ORDERED: VANCOMYCIN/NS 1 GM/250 ML 1 GM/250 ML BAG IV ONE ×3 (06:48→10:00)
[2021-08-07] MEDS ORDERED: NORepinephrine/NS 8 MG-250 ML 8 MG/250 ML INFUS..BTL IV SCH (07:00)
--- NOTE | 2021-08-07 07:22 | Consultation ---
History of Present Illness Consult date: 08/07/21 Requesting physician: JINA FERGUSON Reason for consult: other (Hypotension) History of present illness: The history is per chart. She is 76 yo female with known liver cancer for 3 years, follows at [facility]. She was (per son) Stage III, but progressed to Stage IV last year, and was on active Chemo at [facility]. She had problems with an elevated Bilirubin and had a stent placed at [facility], but the stent was removed 2-3 days ago ("because the bilirubin was better"). She had been in the hospital at [facility] for a week when the stent was removed. She was supposed to go to chemo yesterday, but came to the ER at [facility] because she felt so ill with fevers and N/V. She presents with a fever of 103 F, tachycardia, and some borderline hypotension and a code sepsis was initiated. She had a CT scan that showed a large air/fluid pocket around a solid-appearing lesion in the R lobe of the liver (presumably infection on the tumor). She had no significant pneumobilia in the CBD. She is hypotensive on with signs of septic shock. The ED physician called for a critical care consult. A right femoral CVL was placed and the patient received 30ml/kg fluid bolus and remains hypotensive requiring vasopressor support. Patient seen and examined. Vitals, labs, medications, chart reviewed. Discussed with the nursing care staff to facilitate the initiation of vasopressors. - Past Medical History Hx Hypertension: Yes Hx Diabetes: Yes Additional medical history: CANCER, CHEMO, - Surgical History Past Surgical History?: Yes - Social History Smoking Status: Never Smoker Substance Use Type: None Medications and Allergies Allergies Allergy/AdvReac Type Severity Reaction Status Date / Time Penicillins Allergy Unknown Verified 11/12/16 10:35 Home Medications Medication Instructions Recorded Confirmed Last Taken Type AtorvaSTATin [Lipitor] 40 mg PO QHS 08/07/21 08/07/21 Unknown History Diphenoxylate HCl/Atropine 60 ml PO DAILY 08/07/21 08/07/21 Unknown History [Diphenoxylate-Atropine Liq] Esomeprazole Magnesium [NexIUM] 40 mg PO QDAY 08/07/21 08/07/21 Unknown History Ondansetron [Zofran ODT TAB] 8 mg PO Q8HR 08/07/21 08/07/21 Unknown History Prochlorperazine Maleate 10 mg PO DAILY 08/07/21 08/07/21 Unknown History [Compazine] Regorafenib [Stivarga] 40 mg PO QDAY 08/07/21 08/07/21 Unknown History dexAMETHasone [Dexamethasone] 4 mg PO DAILY 08/07/21 08/07/21 Unknown History traMADoL [Ultram 50 MG tab] 50 mg PO PRN 08/07/21 08/07/21 Unknown History Active Meds: Active Medications Levofloxacin/Dextrose (Levaquin 750mg/150ml) 750 mg in 150 mls @ 100 mls/hr IV ONCE ONE; Protocol Stop: 08/07/21 08:05 NORepinephrine/NS 8 MG-250 ML (Norepinephrine/Ns 8 Mg-250 Ml (Double Conc)) 8 mg in 250 mls @ 3.75 mls/hr IV TITRATE WOODY; Protocol Vancomycin HCl (Vancomycin/Ns 1 Gm/250 Ml) 1 gm in 250 mls @ 167.007 mls/hr IV ONCE ONE; Protocol Stop: 08/07/21 08:17 Review of Systems ROS unobtainable: due to mental status Physical Examination Vital signs: Vital Signs Temp Pulse Resp BP Pulse Ox 103.4 F H 132 H 20 90/56 92 08/07/21 01:04 08/07/21 01:04 08/07/21 01:04 08/07/21 01:04 08/07/21 01:04 General appearance: lethargic, appears uncomfortable, other (thin frail looking woman, febrile) Eyes: icteric ENT: oropharynx dry Neck: supple, no lymphadenopathy, no JVD Effort: normal Ascultation: Bilateral: clear, diminished breath sounds Cardiovascular: other (tachycardia, S1,S2) Gastrointestinal: normoactive bowel sounds, soft, non-tender, other (mildly distended) Integumentary: normal Extremities: no ischemia or petechiae, cool non-focal exam (moves all extremities), pupils equal and round other Results - Laboratory Findings CBC and BMP: 08/07/21 01:33 08/07/21 13:25 PT/INR, D-dimer D-Dimer 4285.00 ng/mlDDU (0-234) H 08/07/21 01:53 Abnormal lab findings: Abnormal Labs 08/07/21 08/07/21 08/07/21 01:33 01:33 01:33 WBC 16.0 H RBC 3.30 L MCV 102 H MCH 33 H Seg Neuts % (Manual) 74.0 H Lymphocytes % (Manual) 5.0 L Seg Neutrophils # Man 11.8 H Lymphocytes # (Manual) 0.8 L D-Dimer Sodium 133 L Carbon Dioxide 18 L BUN 27 H Glucose 163 H Lactic Acid 5.70 H* Calcium 7.9 L Ferritin Total Bilirubin 6.80 H AST 174 H ALT 89 H Alkaline Phosphatase 349 H Ammonia Lactate Dehydrogenase C-Reactive Protein Total Protein 6.0 L Albumin 2.6 L 08/07/21 08/07/21 08/07/21 01:33 01:53 01:53 WBC RBC MCV MCH Seg Neuts % (Manual) Lymphocytes % (Manual) Seg Neutrophils # Man Lymphocytes # (Manual) D-Dimer 4285.00 H Sodium Carbon Dioxide BUN Glucose Lactic Acid Calcium Ferritin 1231.0 H Total Bilirubin AST ALT Alkaline Phosphatase Ammonia 19.0 L Lactate Dehydrogenase C-Reactive Protein Total Protein Albumin 08/07/21 08/07/21 08/07/21 01:53 05:44 Unknown WBC RBC MCV MCH Seg Neuts % (Manual) Lymphocytes % (Manual) Seg Neutrophils # Man Lymphocytes # (Manual) D-Dimer Sodium Carbon Dioxide BUN Glucose Lactic Acid 4.70 H* 5.90 H* Calcium Ferritin Total Bilirubin AST ALT Alkaline Phosphatase Ammonia Lactate Dehydrogenase 477 H C-Reactive Protein 31.30 H Total Protein Albumin - Diagnostic Findings Chest x-ray: image reviewed (nodular metastatic disease) CT scan - chest: image reviewed (No PE, metastatic disease) Assessment and Plan Septic shock probably GI source Metastatic cancer- mets to liver and lung Acute encephalopathy in the setting of shock Elevated bilirubin, Transaminitis - Continue with IVF -Start Norepinephrine, titrate to keep MAP>65 -Antibiotics- currently on Levoflxocain and Vancomcyin. Will recommend that Metronidazole be added for anaerobic coverage. The patient has a documented penicillin allergy -Follow up cultures. Trend lactic acid per sepsis protocol -VTE prophylaxis -Agree with GI/hepatology consult -Prognosis is poor, especially if there is no source control in the setting of metastatic disease. Discussed with ED physician.
--- NOTE | 2021-08-07 11:44 | History and Physical Report ---
History of Present Illness Date of examination: 08/07/21 History of present illness: 76-year-old female presents to the emergency department via EMS from home after she became very weak and it appeared like she was going to pass out. This was witnessed by her son, who called EMS. She has 2 sons, both named Johnson. The son that lives in [place] is the one that knows her medical history and his phone number is [phone]. This patient has a history of stage IV liver cancer with lung metastasis. All of her care is through [facility]. The patient recently had an issue with obstructive jaundice towards the end of 2020. Her son says that the patient had a biliary stent taken out on Monday, 2 days ago. The patient was due for chemotherapy treatment today but did not go secondary to her feeling ill. The son said that she appeared pale, shaky, and she was complaining of chills. She presents with a fever of 103 F, tachycardia, and some borderline hypotension and a code sepsis was initiated. ED Past Medical Hx - Past Medical History Hx Hypertension: Yes Hx Diabetes: Yes Additional medical history: CANCER, CHEMO, - Surgical History Past Surgical History?: Yes - Social History Smoking Status: Never Smoker Substance Use Type: None Medications and Allergies Allergies Allergy/AdvReac Type Severity Reaction Status Date / Time Penicillins Allergy Unknown Verified 11/12/16 10:35 Home Medications Medication Instructions Recorded Confirmed Last Taken Type Azithromycin [Zithromax Z-MARLEEN] 250 mg PO DAILY #6 tab 11/12/16 Unknown Rx Cetirizine HCl [ZyrTEC] 10 mg PO QDAY #10 capsule 11/12/16 Unknown Rx Esomeprazole Magnesium [NexIUM] 1 tab PO DAILY 11/12/16 11/12/16 11/12/16 History Fluticasone [Flonase] 1 spray NS QDAY #1 bottle 11/12/16 Unknown Rx Promethazine /Codeine 11/12/16 11/12/16 11/04/16 History [Phenergan/Codeine 6.25-10 mg/5 ml] Sitagliptin Phosphate [Januvia] 100 mg PO DAILY 11/12/16 11/12/16 11/12/16 History guaiFENesin/CODEINE [Robitussin AC] 5 ml PO QHS PRN #70 udc 04/29/17 Unknown Rx hydroCHLOROthiazide [HCTZ] 25 mg PO QDAY #30 tablet 11/12/16 Unknown Rx metFORMIN [Glucophage] 500 mg PO BID 11/12/16 11/12/16 11/11/16 History Active Meds: Active Medications NORepinephrine/NS 8 MG-250 ML (Norepinephrine/Ns 8 Mg-250 Ml (Double Conc)) 8 mg in 250 mls @ 3.75 mls/hr IV TITRATE WOODY; Protocol Last Titration: 08/07/21 07:57 Dose: 5 mcg/min, 9.375 mls/hr Lactated Ringer's (Lactated Ringers) 1,000 mls @ 75 mls/hr IV DIRECT WOODY Exam - Constitutional Vitals: Temp Pulse Resp BP Pulse Ox 97.7 F 90 20 106/62 100 08/07/21 09:12 08/07/21 10:31 08/07/21 10:31 08/07/21 10:31 08/07/21 10:31 HEART Score - HEART Score Troponin: Troponin T < 0.010 ng/mL (0.00-0.029) 08/07/21 01:33 Results - Labs CBC & Chem 7: 08/07/21 01:33 08/07/21 01:33 Labs: Abnormal lab results 08/07/21 08/07/21 08/07/21 Range/Units 01:33 01:33 01:33 WBC 16.0 H (4.5-11.0) K/mm3 RBC 3.30 L (3.65-5.03) M/mm3 MCV 102 H (79-97) fl MCH 33 H (28-32) pg Seg Neuts % (Manual) 74.0 H (40.0-70.0) % Lymphocytes % (Manual) 5.0 L (13.4-35.0) % Seg Neutrophils # Man 11.8 H (1.8-7.7) K/mm3 Lymphocytes # (Manual) 0.8 L (1.2-5.4) K/mm3 D-Dimer (0-234) ng/mlDDU Sodium 133 L (137-145) mmol/L Carbon Dioxide 18 L (22-30) mmol/L BUN 27 H (7-17) mg/dL Glucose 163 H (65-100) mg/dL Lactic Acid 5.70 H* (0.7-2.0) mmol/L Calcium 7.9 L (8.4-10.2) mg/dL Ferritin (10.0-200.0) ng/mL Total Bilirubin 6.80 H (0.1-1.2) mg/dL AST 174 H (5-40) units/L ALT 89 H (7-56) units/L Alkaline Phosphatase 349 H (35-129) units/L Ammonia (25-60) umol/L Lactate Dehydrogenase (91-180) units/L C-Reactive Protein (0.00-1.30) mg/dL Total Protein 6.0 L (6.3-8.2) g/dL Albumin 2.6 L (3.9-5) g/dL 08/07/21 08/07/21 08/07/21 Range/Units 01:33 01:53 01:53 WBC (4.5-11.0) K/mm3 RBC (3.65-5.03) M/mm3 MCV (79-97) fl MCH (28-32) pg Seg Neuts % (Manual) (40.0-70.0) % Lymphocytes % (Manual) (13.4-35.0) % Seg Neutrophils # Man (1.8-7.7) K/mm3 Lymphocytes # (Manual) (1.2-5.4) K/mm3 D-Dimer 4285.00 H (0-234) ng/mlDDU Sodium (137-145) mmol/L Carbon Dioxide (22-30) mmol/L BUN (7-17) mg/dL Glucose (65-100) mg/dL Lactic Acid (0.7-2.0) mmol/L Calcium (8.4-10.2) mg/dL Ferritin 1231.0 H (10.0-200.0) ng/mL Total Bilirubin (0.1-1.2) mg/dL AST (5-40) units/L ALT (7-56) units/L Alkaline Phosphatase (35-129) units/L Ammonia 19.0 L (25-60) umol/L Lactate Dehydrogenase (91-180) units/L C-Reactive Protein (0.00-1.30) mg/dL Total Protein (6.3-8.2) g/dL Albumin (3.9-5) g/dL 08/07/21 08/07/21 08/07/21 Range/Units 01:53 05:44 Unknown WBC (4.5-11.0) K/mm3 RBC (3.65-5.03) M/mm3 MCV (79-97) fl MCH (28-32) pg Seg Neuts % (Manual) (40.0-70.0) % Lymphocytes % (Manual) (13.4-35.0) % Seg Neutrophils # Man (1.8-7.7) K/mm3 Lymphocytes # (Manual) (1.2-5.4) K/mm3 D-Dimer (0-234) ng/mlDDU Sodium (137-145) mmol/L Carbon Dioxide (22-30) mmol/L BUN (7-17) mg/dL Glucose (65-100) mg/dL Lactic Acid 4.70 H* 5.90 H* (0.7-2.0) mmol/L Calcium (8.4-10.2) mg/dL Ferritin (10.0-200.0) ng/mL Total Bilirubin (0.1-1.2) mg/dL AST (5-40) units/L ALT (7-56) units/L Alkaline Phosphatase (35-129) units/L Ammonia (25-60) umol/L Lactate Dehydrogenase 477 H (91-180) units/L C-Reactive Protein 31.30 H (0.00-1.30) mg/dL Total Protein (6.3-8.2) g/dL Albumin (3.9-5) g/dL
[2021-08-07] MEDS ORDERED: LACTATED RINGERS 1,000 ML IV SCH (12:45)
--- NOTE | 2021-08-07 12:51 | Gastroenterology Consultation ---
History of Present Illness - Reason for Consult Consult date: 08/07/21 Liver Abscess Requesting physician: RAFAEL ARMANDO - History of Present Illness The history is per chart and son Johnson. She is 76 yo female with known liver cancer for 3 years, follows at [facility]. She was (per son) Stage III, but progressed to Stage IV last year, and was on active Chemo at [facility]. She had problems with an elevated Bilirubin and had a stent placed at [facility], but the stent was removed 2-3 days ago ("because the bilirubin was better"). She had been in the hospital at [facility] for a week when the stent was removed. She was supposed to go to chemo yesterday, but went to the ER at [facility] because she felt so ill with fevers and N/V. She had a CT scan that showed a large air/fluid po cket around a solid-appearing lesion in the R lobe of the liver (presumably infection on the tumor). She had no significant pneumobilia in the CBD. She was hypotensive on admit, with signs of septic shock, but BP now improved, and is awake and alert, conversing with me. Past History Past Medical History: cancer (Stage IV HCC with lung mets), diabetes, hype rtension Past Surgical History: Other (Biliary stents) Social history: lives with family. denies: smoking, alcohol abuse Family history: no significant family history Medications and Allergies Allergies Allergy/AdvReac Type Severity Reaction Status Date / Time Penicillins Allergy Unknown Verified 11/12/16 10:35 Home Medications Medication Instructions Recorded Confirmed Last Taken Type AtorvaSTATin [Lipitor] 40 mg PO QHS 08/07/21 08/07/21 Unknown History Diphenoxylate HCl/Atropine 60 ml PO DAILY 08/07/21 08/07/21 Unknown History [Diphenoxylate-Atropine Liq] Esomeprazole Magnesium [NexIUM] 40 mg PO QDAY 08/07/21 08/07/21 Unknown History Ondansetron [Zofran ODT TAB] 8 mg PO Q8HR 08/07/21 08/07/21 Unknown History Prochlorperazine Maleate 10 mg PO DAILY 08/07/21 08/07/21 Unknown History [Compazine] Regorafenib [Stivarga] 40 mg PO QDAY 08/07/21 08/07/21 Unknown History dexAMETHasone [Dexamethasone] 4 mg PO DAILY 08/07/21 08/07/21 Unknown History traMADoL [Ultram 50 MG tab] 50 mg PO PRN 08/07/21 08/07/21 Unknown History Active Meds: Active Medications NORepinephrine/NS 8 MG-250 ML (Norepinephrine/Ns 8 Mg-250 Ml (Double Conc)) 8 mg in 250 mls @ 3.75 mls/hr IV TITRATE WOODY; Protocol Last Titration: 08/07/21 12:19 Dose: 5 mcg/min, 9.375 mls/hr Lactated Ringer's (Lactated Ringers) 1,000 mls @ 75 mls/hr IV DIRECT WOODY Last Admin: 08/07/21 12:26 Dose: 75 mls/hr Insulin Human Regular (Insulin Regular, Human 100 Units/1 Ml) 0 units SUB-Q ACHS WOODY; Protocol I HAVE REVIEWED/RECONCILED MEDICATIONS. Review of Systems - Review of Systems All systems: negative (as noted in the HPI) Exam - Constitutional Vital Signs: Temp Pulse Resp BP Pulse Ox 97.7 F 94 H 17 94/52 100 08/07/21 09:12 08/07/21 12:31 08/07/21 12:31 08/07/21 12:31 08/07/21 12:31 General appearance: mild distress - EENT Eyes: PERRL, EOM intact, scleral icterus ENT: hearing intact, clear oral mucosa, no thrush - Neck Neck: supple, normal ROM - Respiratory Respiratory effort: normal Respiratory: bilateral: CTA - Cardiovascular Heart Rate: 110 Rhythm: regular Heart Sounds: Present: S1 & S2 Extremities: no ischemia, No edema - Gastrointestinal General gastrointestinal: Present: soft, tender (Minimal RUQ tenderness without guarding), non-distended - Integumentary Integumentary: Present: clear, warm, dry - Neurologic Neurological: alert and oriented x3 - Psychiatric Psychiatric: appropriate mood/affect - Labs CBC & Chem 7: 08/07/21 01:33 08/07/21 01:33 Lab Results: Laboratory Results - last 24 hr 08/07/21 08/07/21 08/07/21 01:33 01:33 01:33 WBC 16.0 H RBC 3.30 L Hgb 10.9 Hct 33.5 MCV 102 H MCH 33 H MCHC 32 RDW 14.5 Plt Count 183 Add Manual Diff Complete Total Counted 100 Seg Neutrophils % Rehab Assistant Seg Neuts % (Manual) 74.0 H Band Neutrophils % 17.0 Lymphocytes % (Manual) 5.0 L Reactive Lymphs % (Man) 0 Monocytes % (Manual) 2.0 Eosinophils % (Manual) 0 Basophils % (Manual) 0 Metamyelocytes % 2.0 Myelocytes % 0 Promyelocytes % 0 Blast Cells % 0 Nucleated RBC % Not Reportable Seg Neutrophils # Man 11.8 H Band Neutrophils # 2.7 Lymphocytes # (Manual) 0.8 L Abs React Lymphs (Man) 0.0 Monocytes # (Manual) 0.3 Eosinophils # (Manual) 0.0 Basophils # (Manual) 0.0 Metamyelocytes # 0.3 Myelocytes # 0.0 Promyelocytes # 0.0 Blast Cells # 0.0 WBC Morphology Not Reportable Hypersegmented Neuts Not Reportable Hyposegmented Neuts Not Reportable Hypogranular Neuts Not Reportable Smudge Cells Not Reportable Toxic Granulation Not Reportable Toxic Vacuolation Not Reportable Dohle Bodies Not Reportable Pelger-Huet Anomaly Not Reportable Yogi Rods Not Reportable Platelet Estimate Consistent w auto Clumped Platelets Not Reportable Plt Clumps, EDTA Not Reportable Large Platelets Not Reportable Giant Platelets Not Reportable Platelet Satelliting Not Reportable Plt Morphology Comment Not Reportable RBC Morphology Not Reportable Dimorphic RBCs Not Reportable Polychromasia Not Reportable Hypochromasia 1+ Poikilocytosis 1+ Anisocytosis 1+ Microcytosis Not Reportable Macrocytosis 1+ Spherocytes Rare Pappenheimer Bodies Not Reportable Sickle Cells Not Reportable Target Cells Not Reportable Tear Drop Cells Not Reportable Ovalocytes Few Stomatocytes Few Helmet Cells Not Reportable Franks-Leeton Bodies Not Reportable [place] Rings Not Reportable Luz Cells Not Reportable Bite Cells Not Reportable Crenated Cell Not Reportable Elliptocytes Not Reportable Acanthocytes (Spur) Not Reportable Rouleaux Not Reportable Hemoglobin C Crystals Not Reportable Schistocytes Not Reportable Malaria parasites Not Reportable Navid Bodies Not Reportable Hem Pathologist Commnt No D-Dimer Sodium 133 L Potassium 4.0 Chloride 98.6 Carbon Dioxide 18 L Anion Gap 20 BUN 27 H Creatinine 0.9 Estimated GFR > 60 BUN/Creatinine Ratio 30 Glucose 163 H POC Glucose Lactic Acid 5.70 H* Calcium 7.9 L Ferritin Total Bilirubin 6.80 H AST 174 H ALT 89 H Alkaline Phosphatase 349 H Ammonia Lactate Dehydrogenase Troponin T < 0.010 C-Reactive Protein Total Protein 6.0 L Albumin 2.6 L Albumin/Globulin Ratio 0.8 TSH Influenza A (Rapid) Influenza B (Rapid) 08/07/21 08/07/21 08/07/21 01:33 01:33 01:53 WBC RBC Hgb Hct MCV MCH MCHC RDW Plt Count Add Manual Diff Total Counted Seg Neutrophils % Seg Neuts % (Manual) Band Neutrophils % Lymphocytes % (Manual) Reactive Lymphs % (Man) Monocytes % (Manual) Eosinophils % (Manual) Basophils % (Manual) Metamyelocytes % Myelocytes % Promyelocytes % Blast Cells % Nucleated RBC % Seg Neutrophils # Man Band Neutrophils # Lymphocytes # (Manual) Abs React Lymphs (Man) Monocytes # (Manual) Eosinophils # (Manual) Basophils # (Manual) Metamyelocytes # Myelocytes # Promyelocytes # Blast Cells # WBC Morphology Hypersegmented Neuts Hyposegmented Neuts Hypogranular Neuts Smudge Cells Toxic Granulation Toxic Vacuolation Dohle Bodies Pelger-Huet Anomaly Yogi Rods Platelet Estimate Clumped Platelets Plt Clumps, EDTA Large Platelets Giant Platelets Platelet Satelliting Plt Morphology Comment RBC Morphology Dimorphic RBCs Polychromasia Hypochromasia Poikilocytosis Anisocytosis Microcytosis Macrocytosis Spherocytes Pappenheimer Bodies Sickle Cells Target Cells Tear Drop Cells Ovalocytes Stomatocytes Helmet Cells Franks-Leeton Bodies [place] Rings [place] Cells Bite Cells Crenated Cell Elliptocytes Acanthocytes (Spur) Rouleaux Hemoglobin C Crystals Schistocytes Malaria parasites Navid Bodies Hem Pathologist Commnt D-Dimer 4285.00 H Sodium Potassium Chloride Carbon Dioxide Anion Gap BUN Creatinine Estimated GFR BUN/Creatinine Ratio Glucose POC Glucose Lactic Acid Calcium Ferritin Total Bilirubin AST ALT Alkaline Phosphatase Ammonia 19.0 L Lactate Dehydrogenase Troponin T C-Reactive Protein Total Protein Albumin Albumin/Globulin Ratio TSH 1.150 Influenza A (Rapid) Influenza B (Rapid) 08/07/21 08/07/21 08/07/21 01:53 01:53 05:44 WBC RBC Hgb Hct MCV MCH MCHC RDW Plt Count Add Manual Diff Total Counted Seg Neutrophils % Seg Neuts % (Manual) Band Neutrophils % Lymphocytes % (Manual) Reactive Lymphs % (Man) Monocytes % (Manual) Eosinophils % (Manual) Basophils % (Manual) Metamyelocytes % Myelocytes % Promyelocytes % Blast Cells % Nucleated RBC % Seg Neutrophils # Man Band Neutrophils # Lymphocytes # (Manual) Abs React Lymphs (Man) Monocytes # (Manual) Eosinophils # (Manual) Basophils # (Manual) Metamyelocytes # Myelocytes # Promyelocytes # Blast Cells # WBC Morphology Hypersegmented Neuts Hyposegmented Neuts Hypogranular Neuts Smudge Cells Toxic Granulation Toxic Vacuolation Dohle Bodies Pelger-Huet Anomaly Yogi Rods Platelet Estimate Clumped Platelets Plt Clumps, EDTA Large Platelets Giant Platelets Platelet Satelliting Plt Morphology Comment RBC Morphology Dimorphic RBCs Polychromasia Hypochromasia Poikilocytosis Anisocytosis Microcytosis Macrocytosis Spherocytes Pappenheimer Bodies Sickle Cells Target Cells Tear Drop Cells Ovalocytes Stomatocytes Helmet Cells Franks-Leeton Bodies [place] Rings Luz Cells Bite Cells Crenated Cell Elliptocytes Acanthocytes (Spur) Rouleaux Hemoglobin C Crystals Schistocytes Malaria parasites Navid Bodies Hem Pathologist Commnt D-Dimer Sodium Potassium Chloride Carbon Dioxide Anion Gap BUN Creatinine Estimated GFR BUN/Creatinine Ratio Glucose POC Glucose Lactic Acid 4.70 H* Calcium Ferritin 1231.0 H Total Bilirubin AST ALT Alkaline Phosphatase Ammonia Lactate Dehydrogenase 477 H Troponin T C-Reactive Protein 31.30 H Total Protein Albumin Albumin/Globulin Ratio TSH Influenza A (Rapid) Influenza B (Rapid) 08/07/21 08/07/21 08/07/21 09:00 12:15 Unknown WBC RBC Hgb Hct MCV MCH MCHC RDW Plt Count Add Manual Diff Total Counted Seg Neutrophils % Seg Neuts % (Manual) Band Neutrophils % Lymphocytes % (Manual) Reactive Lymphs % (Man) Monocytes % (Manual) Eosinophils % (Manual) Basophils % (Manual) Metamyelocytes % Myelocytes % Promyelocytes % Blast Cells % Nucleated RBC % Seg Neutrophils # Man Band Neutrophils # Lymphocytes # (Manual) Abs React Lymphs (Man) Monocytes # (Manual) Eosinophils # (Manual) Basophils # (Manual) Metamyelocytes # Myelocytes # Promyelocytes # Blast Cells # WBC Morphology Hypersegmented Neuts Hyposegmented Neuts Hypogranular Neuts Smudge Cells Toxic Granulation Toxic Vacuolation Dohle Bodies Pelger-Huet Anomaly Yogi Rods Platelet Estimate Clumped Platelets Plt Clumps, EDTA Large Platelets Giant Platelets Platelet Satelliting Plt Morphology Comment RBC Morphology Dimorphic RBCs Polychromasia Hypochromasia Poikilocytosis Anisocytosis Microcytosis Macrocytosis Spherocytes Pappenheimer Bodies Sickle Cells Target Cells Tear Drop Cells Ovalocytes Stomatocytes Helmet Cells Franks-Leeton Bodies [place] Rings [place] Cells Bite Cells Crenated Cell Elliptocytes Acanthocytes (Spur) Rouleaux Hemoglobin C Crystals Schistocytes Malaria parasites Navid Bodies Hem Pathologist Commnt D-Dimer Sodium Potassium Chloride Carbon Dioxide Anion Gap BUN Creatinine Estimated GFR BUN/Creatinine Ratio Glucose POC Glucose 137 H Lactic Acid 5.90 H* Calcium Ferritin Total Bilirubin AST ALT Alkaline Phosphatase Ammonia Lactate Dehydrogenase Troponin T C-Reactive Protein Total Protein Albumin Albumin/Globulin Ratio TSH Influenza A (Rapid) Negative Influenza B (Rapid) Negative Assessment and Plan - Patient Problems (1) Liver abscess Current Visit: Yes Status: Acute Plan to address problem: - Given the underlying tumor, the prognosis and chance of complete eradication is poor. - In addition, the location of the abscess (high in right lobe, abutting the d iaphragm/lung) and size (over 10 cm) make percutaneous drainage less of an option. - I will contact the liver service at [facility] and discuss therapeutic options. - For now, continue broad-spectrum abx (will add Merrem to levoflox and Vanco) to suppress spread of the infection, and aggressive hydration/pressor support. (2) Hepatocellular carcinoma metastatic to lung Current Visit: Yes Status: Acute (3) Septic shock Current Visit: Yes Status: Acute
[2021-08-07] MEDS ORDERED: MORPHINE 2 MG/1 ML INJ IV PRN (13:07)
[2021-08-07] MEDS ORDERED: HYDROmorphone 1 MG/1 ML INJ IV PRN (13:07)
[2021-08-07] MEDS ORDERED: ACETAMINOPHEN 325 MG TAB PO PRN (13:07)
[2021-08-07] MEDS: ONDANSETRON 4 MG/2 ML INJ IV PRN ×2 (13:31→16:46)
[2021-08-07 14:29] LABS: Alanine Aminotransferase 110 units/L (7-56); Albumin 2.1 g/dL (3.9-5); Blood Urea Nitrogen 38 mg/dL (7-17); Calcium 7.2 mg/dL (8.4-10.2); Hemolysis Index 500
[2021-08-07 14:31] LABS: BUN/Creatinine Ratio 190
[2021-08-07] MEDS ORDERED: MEROPENEM/NS 500 MG/50 ML 500 MG/50 ML BAG IV SCH ×2 (15:00→16:00)
[2021-08-07] MEDS ORDERED: INSULIN REGULAR, HUMAN 100 UNITS/1 ML SUB-Q SCH (16:30)
[2021-08-07 21:43] VITALS: BP 105/54
[2021-08-07] MEDS ORDERED: ENOXAPARIN 40 MG/0.4 ML INJ SUB-Q SCH (22:00)
--- NOTE | 2021-08-12 13:18 | Electrocardiograph Report ---
[facility] Test Date: 2021-08-07 Test Time: 06:38:48 Pat Name: KAYCEE LEO Department: Room: [place] [address] Gender: F Pet Care Technician: DEREK : 1945 Requested By: RAFAEL ARMANDO Order Number: [id number] Reading MD: Silvia Escamilla Measurements Intervals [place] Rate: 106 P: 24 OK: 173 QRS: 43 QRSD: 78 T: 57 QT: 353 QTc: 468 Interpretive Statements Sinus tachycardia Low voltage, extremity leads No previous ECG available for comparison Electronically Signed On 08-12-2021 13:17:40 EST by Silvia Escamilla
== END 2021-08-07 21:45 | disposition admitted as inpatient to this hospital (09) ==
LOC: ED 23:59 → 3A 08-07 13:07 → UNDOADMIN 08-07 13:07 → 3A 08-07 14:38 → CC1 08-07 14:38 → ED 08-07 21:45
DX: U07.1 COVID-19 (principal); C22.9 Malignant neoplasm of liver, not specified as primary or secondary; C78.00 Secondary malignant neoplasm of unspecified lung; R65.21 Severe sepsis with septic shock; I95.9 Hypotension, unspecified; I10 Essential (primary) hypertension; E11.9 Type 2 diabetes mellitus without complications; Z88.0 Allergy status to penicillin; R74.01 Elevation of levels of liver transaminase levels
CPT/HCPCS: 36415; 71045; 71275; 74177; 80053; 82140; 82728; 82962; 83615; 84145; 84443; 84484; 85007; 85025; 85379; 86140; 87040; 87076; 87186; 87400; 93005; 93010; 96361; 96365; 96367; 96375; 99291; J1885; J1956; J2185; J2354; J2405; J3370; Q9967; U0003